=== PATIENT | female | born 1980 | race Asian ===

== ENCOUNTER 2020-08-17 05:41 | Day surgery (SDC) | payer OTHER ==
[2020-08-13 16:51] VITALS: BMI 19.7
[2020-08-17 12:57] VITALS: TEMP 97.8
[2020-08-17 14:03] VITALS: BP 118/80; PULSE 100
== END 2020-08-17 11:35 | disposition home or self-care (01) ==
LOC: JASU-ENDO 05:41
PROVIDERS: ATTEND Internal Medicine Gastroenterology
PROC: 0DB78ZX Excision of Stomach, Pylorus, Via Natural or Artificial Opening Endoscopic, Diagnostic (ICD-10-PCS; 2020-08-17)
PROC: 0DB98ZX Excision of Duodenum, Via Natural or Artificial Opening Endoscopic, Diagnostic (ICD-10-PCS; principal; 2020-08-17 10:30)
DX: K21.00 Gastro-esophageal reflux disease with esophagitis, without bleeding (principal); K44.9 Diaphragmatic hernia without obstruction or gangrene; K29.40 Chronic atrophic gastritis without bleeding
CPT/HCPCS: 81025; 88305-TC; 88342-TC

== ENCOUNTER 2022-05-09 15:36 | Emergency (ER) | payer OTHER ==
[2022-05-09 16:07] VITALS: BP 117/79; PULSE 79; RESP 20; TEMP 98.1; BMI 23.0
[2022-05-09] MEDS ORDERED: SODIUM CHLORIDE 0.9% 500 ML INFUS.BAG IV ONE (17:35)
[2022-05-09] MEDS ORDERED: KETOROLAC TROMETHAMINE 30 MG/1 ML VIAL IVPUSH ONE (17:35)
[2022-05-09] MEDS ORDERED: ACETAMINOPHEN 1000 MG/100 ML BAG IVPB ONE (17:35)
[2022-05-09] MEDS ORDERED: METOCLOPRAMIDE HCL INJECTION 10 MG/2 ML VIAL IVPUSH ONE (17:36)
[2022-05-09] MEDS ORDERED: ACETAMINOPHEN INJECTION 100 ML IVPB ONE (18:38)
[2022-05-09] MEDS ORDERED: KETOROLAC TROMETHAMINE 30 MG/1 ML VIAL ONE (18:38)
[2022-05-09] MEDS ORDERED: METOCLOPRAMIDE HCL INJECTION 10 MG/2 ML VIAL ONE (18:38)
[2022-05-09 19:28] LABS: BASO % 0.4 % (0-2.0); EOS % 0.4 % (0-4.5); HEMATOCRIT 39.2 % (32.4-45.2); HEMOGLOBIN 13.3 GM/dL (10.7-15.3); MEAN CELL VOLUME 88.4 fl (80-96); MEAN PLT VOLUME 8.8 fl (7.5-11.1); MONO % 8.7 % (3.8-10.2); NEUT % 50.5 % (42.8-82.8); PLATELET COUNT 341 10^3/uL (134-434); RBC 4.44 M/mm3 (3.60-5.2); RDW 12.3 % (11.6-15.6); WHITE BLOOD COUNT 5.6 K/mm3 (4.0-10.0)
[2022-05-09 19:32] LABS: CALCIUM 8.9 mg/dL (8.5-10.1)
[2022-05-09 19:33] LABS: ALBUMIN 3.8 g/dl (3.4-5.0); BLOOD UREA NITROGEN 3.3 mg/dL (7-18)
[2022-05-09 19:36] LABS: CREATININE 0.7 mg/dL (0.55-1.3)
[2022-05-09 19:38] LABS: BILIRUBIN,TOTAL 0.5 mg/dL (0.2-1); TOT PROT 7.5 g/dl (6.4-8.2)
== END 2022-05-09 21:36 | disposition home or self-care (01) ==
LOC: JER 15:36 → JERFT 15:36
PROC: 3E033GC Introduction of Other Therapeutic Substance into Peripheral Vein, Percutaneous Approach (ICD-10-PCS; principal; 2022-05-09)
DX: R51.9 Headache, unspecified (principal)
CPT/HCPCS: 36415; 80053; 85025; 99284-25

== ENCOUNTER 2022-05-26 11:11 | Emergency (ER) | payer OTHER ==
[2022-05-26 11:26] VITALS: BP 136/83; PULSE 96; RESP 18; TEMP 98.1; BMI 19.8
== END 2022-05-26 13:27 | disposition home or self-care (01) ==
LOC: FER 11:11
DX: R51.9 Headache, unspecified (principal)
CPT/HCPCS: 70450-TC; 99284-25

== ENCOUNTER 2023-01-19 10:13 | Emergency (ER) | payer OTHER ==
[2023-01-19 10:23] VITALS: BP 98/63; PULSE 68; RESP 18; TEMP 98.6; BMI 25.7
[2023-01-19] MEDS ORDERED: ACETAMINOPHEN 1000 MG/100 ML BAG IVPB ONE (11:02)
[2023-01-19] MEDS ORDERED: METOCLOPRAMIDE HCL INJECTION 10 MG/2 ML VIAL IVPB ONE (11:02)
[2023-01-19] MEDS ORDERED: SODIUM CHLORIDE 0.9% 500 ML INFUS.BAG IV ONE (11:03)
[2023-01-19] MEDS ORDERED: METOCLOPRAMIDE HCL INJECTION 10 MG/2 ML VIAL ONE (11:08)
[2023-01-19] MEDS ORDERED: ACETAMINOPHEN INJECTION 100 ML IVPB ONE (11:10)
[2023-01-19 12:04] LABS: BASO % 0.4 % (0-2.0); EOS % 0.1 % (0-4.5); HEMATOCRIT 41.3 % (32.4-45.2); HEMOGLOBIN 13.7 GM/dL (10.7-15.3); LYMPH % 14.7 % (8-40); MCH 29.3 pg (25.7-33.7); MEAN CELL VOLUME 88.8 fl (80-96); MEAN PLT VOLUME 9.1 fl (7.5-11.1); MONO % 5.3 % (3.8-10.2); NEUT % 79.5 % (42.8-82.8); PLATELET COUNT 340 10^3/uL (134-434); RBC 4.65 M/mm3 (3.60-5.2); RDW 12.7 % (11.6-15.6); WHITE BLOOD COUNT 9.8 K/mm3 (4.0-10.0)
[2023-01-19 12:20] LABS: POTASSIUM 4.3 mmol/L (3.5-5.1)
[2023-01-19 12:23] LABS: ALBUMIN 4.1 g/dl (3.4-5.0); BLOOD UREA NITROGEN 7.9 mg/dL (7-18); MAGNESIUM 1.9 mg/dL (1.8-2.4)
[2023-01-19 12:26] LABS: CREATININE 0.7 mg/dL (0.55-1.3)
[2023-01-19 12:27] LABS: TOT PROT 8.1 g/dl (6.4-8.2)
[2023-01-19 12:28] LABS: BILIRUBIN,TOTAL 0.7 mg/dL (0.2-1)
== END 2023-01-19 14:59 | disposition home or self-care (01) ==
LOC: JER 10:13
PROC: 3E033NZ Introduction of Analgesics, Hypnotics, Sedatives into Peripheral Vein, Percutaneous Approach (ICD-10-PCS; principal; 2023-01-19)
PROC: 3E033GC Introduction of Other Therapeutic Substance into Peripheral Vein, Percutaneous Approach (ICD-10-PCS; 2023-01-19)
DX: R42 Dizziness and giddiness (principal); R11.0 Nausea; R51.9 Headache, unspecified; R09.81 Nasal congestion; M79.10 Myalgia, unspecified site; R07.0 Pain in throat; B34.9 Viral infection, unspecified; Z20.822 Contact with and (suspected) exposure to COVID-19
CPT/HCPCS: 0241U-QW; 36415; 80053; 83735; 84703; 85025; 99284-25